=== PATIENT | male | born 1975 | race Caucasian/White ===

== ENCOUNTER 2016-09-20 15:26 | Emergency (ER) | payer SELFPAY ==
[2016-09-20 15:50] VITALS: BP 112/80
--- NOTE | 2016-09-20 16:45 | UC ---
Skin Complaint HPI - HPI Summary HPI Summary: FOUR DAYS AGO STAYED IN A PERSON'S HOUSE ON THE COUGH, BEGAN DEVELOPING WORSENING ITCHY RASH ON TORSO ARMS AND LEGS. N0O TICK BITES NO NEW EXPOSURE TO DETERGENTS, FOODS, OR MEDICATION. - History of Current Complaint Chief Complaint: UCSkin Time Seen by Provider: 09/20/16 15:41 Stated Complaint: RASH Hx Obtained From: Patient Onset/Duration: Gradual Onset, Lasting Days, Still Present, Worse Since - DAILY Skin Exposure Onset/Duration: Days Ago Onset Severity: Moderate Current Severity: Moderate Pain Intensity: 0 Pain Scale Used: 0-10 Numeric Location: Diffuse Character: Pruritus, Redness Aggravating: Nothing Alleviating: Nothing Associated Signs & Symptoms: Positive: Rash. Negative: Nausea, Vomiting, Numbness, Thirst, Shivering, Fever, Chills, Cough, Wheezing, Hoarseness, Throat Tightening, Syncope, Drainage, Bruising, Tenderness, Red Streaks, Joint Swelling Related History: Possible Reaction to: Insect, Possible Reaction to: Environmental Exposure - Allergy/Home Medications Allergies/Adverse Reactions: Allergies Allergy/AdvReac Type Severity Reaction Status Date / Time No Known Allergies Allergy Verified 09/20/16 15:50 Home Medications: Home Medications 5 Meds For Heart* 09/20/16 [History] Review of Systems Constitutional: Negative Skin: Rash Eyes: Negative ENT: Negative Respiratory: Negative Cardiovascular: Negative Gastrointestinal: Negative Genitourinary: Negative Motor: Negative Neurovascular: Negative Musculoskeletal: Arthralgia Neurological: Negative Psychological: Negative All Other Systems Reviewed And Are Negative: Yes PMH/Surg Hx/FS Hx/Imm Hx Previously Healthy: Yes Endocrine History Of: Denies: Diabetes, Thyroid Disease, Hyperthyroidism, Hypothyroidism Cardiovascular History Of: Reports: Cardiac Disorders Denies: Hypertension Respiratory History Of: Denies: COPD, Asthma, Bronchitis GI/ History Of: Denies: Ulcer - Surgical History Surgical History: None - Family History Known Family History: Positive: Cardiac Disease, Other - noncontibutory - Social History Alcohol Use: None Substance Use Type: Heroin Substance Use Comment - Amount & Last Used: Injects Heroin Smoking Status (MU): Current Every Day Smoker Type: Cigarettes Amount Used/How Often: 1/2 PPD Length of Time of Smoking/Using Tobacco: 19+ years Have You Smoked in the Last Year: Yes Household Exposure Type: Cigarettes Cessation Counseling: Patient Advised to Stop - Immunization History Most Recent Influenza Vaccination: never Most Recent Tetanus Shot: 2013 Most Recent Pneumonia Vaccination: never Physical Exam Triage Information Reviewed: Yes Appearance: Well-Appearing, No Pain Distress, Well-Nourished Vital Signs: Initial Vital Signs Temp 97.7 F 09/20/16 15:46 Pulse 74 09/20/16 15:46 Resp 16 09/20/16 15:46 BP 112/80 09/20/16 15:46 Pulse Ox 95 09/20/16 15:46 Vital Signs Reviewed: Yes Eye Exam: Normal Eyes: Positive: Conjunctiva Clear ENT Exam: Normal ENT: Positive: Normal ENT inspection, Hearing grossly normal Dental Exam: Normal Neck exam: Normal Neck: Positive: Supple, Nontender, No Lymphadenopathy Respiratory Exam: Normal Respiratory: Positive: Chest non-tender, Lungs clear, Normal breath sounds, No respiratory distress, No accessory muscle use Cardiovascular Exam: Normal Cardiovascular: Positive: RRR, No Murmur, Pulses Normal, Brisk Capillary Refill Abdominal Exam: Normal Abdomen Description: Positive: Nontender, No Organomegaly Musculoskeletal Exam: Normal Musculoskeletal: Positive: Strength Intact, ROM Intact Neurological Exam: Normal Psychological Exam: Normal Psychological: Positive: Normal Response To Family Skin: Positive: rashes Course/Dx - Differential Diagnoses - Skin Complaint Differential Diagnoses: Allergic Reaction, Angioedema, Cellulitis, Contact Dermatitis, Drug Rash, Eczema, Impetigo, Local Allergic Reaction, MRSA, Scabies , Tinea - Diagnoses Provider Diagnoses: SCABIES Discharge - Discharge Plan Condition: Stable Disposition: HOME Prescriptions: Cyproheptadine TAB* [Periactin TAB*] 4 mg PO TID PRN #21 tab PRN Reason: Itching Permethrin 5% CREAM* 1 applic TOPICAL SEE INSTRUCTIONS #1 tube Patient Education Materials: Scabies (ED) Referrals: Jitendra Ortiz MD [Primary Care Provider] -
== END 2016-09-20 16:29 | disposition home or self-care (01) ==
LOC: UCEAST 15:26
DX: B86 Scabies (principal); F17.210 Nicotine dependence, cigarettes, uncomplicated
CPT/HCPCS: 99212; G0463

== ENCOUNTER 2016-09-21 21:59 | Emergency (ER) | payer SELFPAY ==
[2016-09-21] MEDS ORDERED: Aspirin Low Dose CHEW TAB* 81 MG PO ONE (22:04)
[2016-09-21 22:07] VITALS: BP 98/73
[2016-09-21 22:18] LABS: Hematocrit 53 % (42-52); Hemoglobin 17.3 g/dl (14.0-18.0); Mean Corpuscular HGB Conc 33 g/dl (31-36); Mean Corpuscular Hemoglobin 28 pg (27-31); Mean Corpuscular Volume 86 fL (80-94); Mean Platelet Volume 8 um3 (7.4-10.4); Red Blood Count 6.14 10^6/ul (4.0-5.4); Red Cell Distribution Width 19 % (10.5-15); White Blood Count 7.5 10^3/ul (3.5-10.8)
[2016-09-21 22:33] LABS: BUN/Creatinine Ratio 18.6 (8-20); Calcium 9.3 mg/dL (8.6-10.3); EGFR African American 69.7 (>60); EGFR Non-African American 54.2 (>60); Globulin 2.6 g/dL (2-4); Magnesium 1.8 mg/dL (1.9-2.7); Total Bilirubin 0.5 mg/dL (0.2-1.0); Total Protein 6.6 g/dL (6.4-8.9)
--- NOTE | 2016-09-21 22:35 | RAD ---
INDICATION: Chest pain COMPARISON: August 21, 2016 TECHNIQUE: PA and lateral dual-energy views were obtained. FINDINGS: Bones/Soft Tissues: There are no acute bony findings. Cardiomediastinal: The cardiomediastinal silhouette is normal. Lungs: There are no infiltrates. Pleura: There are no pleural effusions. Other: None IMPRESSION: NO ACTIVE DISEASE.
[2016-09-21 22:37] LABS: Troponin I 0.05 ng/mL (<0.04)
[2016-09-21 22:46] LABS: Potassium 4.4 mmol/L (3.5-5.0)
--- NOTE | 2016-09-21 22:54 | ED ---
Simon Brian Matthew, scribed for Alvino Benites MD on 09/21/16 at 2215 . HPI Chest Pain - HPI Summary HPI Summary: A 41 y/o male presents to the ED with lower mid chest pain since an hour ago. The pain is rated 7/10 in severity and described as squeezing. The patient was making soup prior to the pain. he has similar symptoms a week ago; however today 's pain is more severe. He was seen at [facility] approximately 3 weeks ago and was hospitalized for 4 days for a bladder infection. Associated symptoms include SOB and left arm numbness. He has aspirin POEM WRITER by EMS. His pain is unaffected by deep breaths. Hx of CHF. The patient is an IV heroin user, but has not used in a couple of days. - History of Current Complaint Chief Complaint: EDChestPainROMI Time Seen by Provider: 09/21/16 22:00 Hx Obtained From: Patient Onset/Duration: Started Hours Ago, Atraumatic, Still Present Time of Onset: 21:00 Timing: Constant Initial Severity: Moderate Current Severity: Moderate Pain Intensity: 7 Pain Scale Used: 0-10 Numeric Chest Pain Location: Mid Sternal - lower mid sternal Chest Pain Radiates: No Character: Pressure/Squeezing Associated Signs and Symptoms: Positive: Chest Pain, Numbness - Left Arm, Shortness of Breath - Allergy/Home Medications Allergies/Adverse Reactions: Allergies Allergy/AdvReac Type Severity Reaction Status Date / Time No Known Allergies Allergy Verified 09/20/16 15:50 PMH/Surg Hx/FS Hx/Imm Hx Endocrine/Hematology History: Denies: Hx Diabetes, Hx Thyroid Disease Cardiovascular History: Denies: Hx Hypertension Respiratory History: Denies: Hx Asthma, Hx Chronic Obstructive Pulmonary Disease (COPD) GI History: Reports: Hx Gastroesophageal Reflux Disease Denies: Hx Ulcer Musculoskeletal History: Reports: Hx Back Problems Denies: Hx Arthritis, Hx Osteoporosis Neurological History: Denies: Hx Headaches Psychiatric History: Reports: Hx Substance Abuse - heroin Infectious Disease History: No Infectious Disease History: Denies: Hx Clostridium Difficile, Hx Hepatitis, Hx Human Immunodeficiency Virus (HIV), Hx of Known/Suspected MRSA, Hx Shingles, Hx Tuberculosis, Hx Known/ Suspected VRE, 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, LEFT arm pit; [place], History Other Infectious Disease, Traveled Outside the [place] in Last 30 Days - Family History Known Family History: Positive: Cardiac Disease, Other - noncontibutory - Social History Alcohol Use: None Substance Use Type: Reports: Heroin Substance Use Comment - Amount & Last Used: Injects Heroin Smoking Status (MU): Current Every Day Smoker Type: Cigarettes Amount Used/How Often: 1/2 PPD Length of Time of Smoking/Using Tobacco: 19+ years Have You Smoked in the Last Year: Yes Review of Systems Constitutional: Negative Eyes: Negative ENT: Negative Positive: Chest Pain Positive: Shortness Of Breath Gastrointestinal: Negative Genitourinary: Negative Musculoskeletal: Negative Skin: Negative Positive: Numbness - Left Arm Psychological: Normal All Other Systems Reviewed And Are Negative: Yes Physical Exam Triage Information Reviewed: Yes Vital Signs On Initial Exam: Initial Vitals Temp Pulse Resp BP Pulse Ox 97.5 F 90 16 98/73 93 09/21/16 22:01 09/21/16 22:01 09/21/16 22:01 09/21/16 22:01 09/21/16 22:01 Vital Signs Reviewed: Yes Appearance: Positive: Well-Appearing, Pain Distress - MILD DISCOMFORT Skin: Positive: Warm Head/Face: Positive: Normal Head/Face Inspection Eyes: Positive: LIVIA ENT: Positive: Hearing grossly normal Neck: Positive: Supple Respiratory/Lung Sounds: Positive: Clear to Auscultation, Breath Sounds Present Cardiovascular: Positive: RRR Abdomen Description: Positive: Nontender, Soft Bowel Sounds: Positive: Present Musculoskeletal: Positive: Strength/ROM Intact Neurological: Positive: Sensory/Motor Intact Psychiatric: Positive: Anxious Diagnostics - Vital Signs Vital Signs Temp Pulse Resp BP Pulse Ox 09/21/16 22:01 97.5 F 90 16 98/73 93 - Laboratory Lab Results: Lab Results 09/21/16 09/21/16 09/21/16 Range/Units 22:10 22:10 22:10 WBC 7.5 (3.5-10.8) 10^3/ul RBC 6.14 H (4.0-5.4) 10^6/ul Hgb 17.3 (14.0-18.0) g/dl Hct 53 H (42-52) % MCV 86 (80-94) fL MCH 28 (27-31) pg MCHC 33 (31-36) g/dl RDW 19 H (10.5-15) % Plt Count 143 L (150-450) 10^3/ul MPV 8 (7.4-10.4) um3 Neut % (Auto) 62.0 (38-83) % Lymph % (Auto) 24.5 L (25-47) % Grady % (Auto) 7.8 (1-9) % Eos % (Auto) 2.2 (0-6) % Baso % (Auto) 3.5 H (0-2) % Absolute Neuts (auto) 4.7 (1.5-7.7) 10^3/ul Absolute Lymphs (auto) 1.8 (1.0-4.8) 10^3/ul Absolute Monos (auto) 0.6 (0-0.8) 10^3/ul Absolute Eos (auto) 0.2 (0-0.6) 10^3/ul Absolute Basos (auto) 0.3 H (0-0.2) 10^3/ul Absolute Nucleated RBC 0.01 10^3/ul Nucleated RBC % 0.1 INR (Anticoag Therapy) 0.94 (0.89-1.11) D-Dimer, Quantitative 219 (Less Than 230) ng/mL Sodium 130 L (133-145) mmol/L Potassium 4.4 (3.5-5.0) mmol/L Chloride 100 L (101-111) mmol/L Carbon Dioxide 21 L (22-32) mmol/L Anion Gap 9 (2-11) mmol/L BUN 27 H (6-24) mg/dL Creatinine 1.45 H (0.67-1.17) mg/dL Est GFR ( Amer) 69.7 (>60) Est GFR (Non-Af Amer) 54.2 (>60) BUN/Creatinine Ratio 18.6 (8-20) Glucose 112 H (70-100) mg/dL Lactic Acid (0.5-2.0) mmol/L Calcium 9.3 (8.6-10.3) mg/dL Magnesium 1.8 L (1.9-2.7) mg/dL Total Bilirubin 0.50 (0.2-1.0) mg/dL AST 26 (13-39) U/L ALT 25 (7-52) U/L Alkaline Phosphatase 116 H (34-104) U/L Troponin I 0.05 H* (<0.04) ng/mL Total Protein 6.6 (6.4-8.9) g/dL Albumin 4.0 (3.2-5.2) g/dL Globulin 2.6 (2-4) g/dL Albumin/Globulin Ratio 1.5 (1-3) 09/21/16 Range/Units 22:10 WBC (3.5-10.8) 10^3/ul RBC (4.0-5.4) 10^6/ul Hgb (14.0-18.0) g/dl Hct (42-52) % MCV (80-94) fL MCH (27-31) pg MCHC (31-36) g/dl RDW (10.5-15) % Plt Count (150-450) 10^3/ul MPV (7.4-10.4) um3 Neut % (Auto) (38-83) % Lymph % (Auto) (25-47) % Grady % (Auto) (1-9) % Eos % (Auto) (0-6) % Baso % (Auto) (0-2) % Absolute Neuts (auto) (1.5-7.7) 10^3/ul Absolute Lymphs (auto) (1.0-4.8) 10^3/ul Absolute Monos (auto) (0-0.8) 10^3/ul Absolute Eos (auto) (0-0.6) 10^3/ul Absolute Basos (auto) (0-0.2) 10^3/ul Absolute Nucleated RBC 10^3/ul Nucleated RBC % INR (Anticoag Therapy) (0.89-1.11) D-Dimer, Quantitative (Less Than 230) ng/mL Sodium (133-145) mmol/L Potassium (3.5-5.0) mmol/L Chloride (101-111) mmol/L Carbon Dioxide (22-32) mmol/L Anion Gap (2-11) mmol/L BUN (6-24) mg/dL Creatinine (0.67-1.17) mg/dL Est GFR ( Amer) (>60) Est GFR (Non-Af Amer) (>60) BUN/Creatinine Ratio (8-20) Glucose (70-100) mg/dL Lactic Acid 1.7 (0.5-2.0) mmol/L Calcium (8.6-10.3) mg/dL Magnesium (1.9-2.7) mg/dL Total Bilirubin (0.2-1.0) mg/dL AST (13-39) U/L ALT (7-52) U/L Alkaline Phosphatase (34-104) U/L Troponin I (<0.04) ng/mL Total Protein (6.4-8.9) g/dL Albumin (3.2-5.2) g/dL Globulin (2-4) g/dL Albumin/Globulin Ratio (1-3) Result Diagrams: 09/21/16 22:10 09/21/16 22:10 Lab Statement: Any lab studies that have been ordered have been reviewed, and results considered in the medical decision making process. - Radiology CXR Xray Interpretation: No Acute Changes - IMPRESSION: NO ACTIVE DISEASE Radiology Interpretation Completed By: Radiologist - EKG 22:18 Cardiac Rate: NL - 84 bpm EKG Rhythm: Sinus Rhythm ST Segment: Non-Specific - DIFFUSE ST DEPRESSION WITH T INVERSIONS Re-Evaluation - Re-Evaluation First Eval Comment: Pt was found in room gettingg dressed trying to take out iv, pt states is leaving and wants to go. Explained to pt that he has a markedly abnormal ekg , may be having a heart attack, pt still states is going to leave, explained risks including mi, loss of life, pt verbalizes understanding but still is going home, refused to sign ama Chest Pain Course/Dx - Diagnoses Provider Diagnoses: ACS (acute coronary syndrome) Discharge - Discharge Plan Condition: Fair Disposition: AGAINST MEDICAL ADVICE Discharge Disposition Comment: The patient eloped from the ED. Referrals: Jitendra Ortiz MD [Primary Care Provider] - The documentation as recorded by the Simon suarez Matthew accurately reflects the service I personally performed and the decisions made by me, Alvino Benites MD.
[2016-09-29] MEDS ORDERED: EPINEPHrine SYR 0.1 MG/ML* (1:10,000) SYRINGE ONE (23:34)
== END 2016-09-21 22:51 | disposition left against medical advice (07) ==
LOC: ED 21:59
DX: I24.9 Acute ischemic heart disease, unspecified (principal); R07.9 Chest pain, unspecified; R06.02 Shortness of breath; R20.0 Anesthesia of skin; F17.210 Nicotine dependence, cigarettes, uncomplicated
CPT/HCPCS: 36415; 71020; 80053; 83605; 83735; 84484; 85025; 85379; 85610; 93005; 99282

== ENCOUNTER 2016-09-29 23:27 | Emergency (ER) | payer OTHER ==
[2016-09-29] MEDS ORDERED: Rocuronium* 10 MG/ML VIAL ONE (23:34)
[2016-09-29] MEDS ORDERED: EPINEPHrine SYR 0.1 MG/ML* (1:10,000) SYRINGE ONE (23:46)
[2016-09-29] MEDS ORDERED: Naloxone* 0.4 MG/ML 10 ML VIAL ONE (23:58)
[2016-09-29] MEDS ORDERED: KETAMINE HCL* 50 MG/ML 10 ML VIAL ONE (23:59)
[2016-09-30 00:48] VITALS: BP 0/0
--- NOTE | 2016-09-30 00:54 | ED ---
I, Oh,Soohgloria, scribed for Chandrakant Reynolds MD on 09/30/16 at 0009 . Cardiac Resuscitation - HPI Summary HPI Summary: This 39 y/o male presents to ED via private transport alongside a couple of friends. Friends reports that he was over at their house to do laundry and have dinner when pt was noted with decreased responsiveness. Pt is noted with decreased responsiveness when initially encountered at unit receptionist, and was immediately placed in ED room where Narcan was administered. Responsiveness is improved after Narcan, and pt fights the restraint while E IO is being placed. Bradypnea continued and pt was noted asystole during the initial attempt to establish IO. Pt is noted with sinus tachycardia, then sinus bradycardia, then noted asystole at 2332 PM. ABC code called. Per EMR, PMHx includes endocarditis and IVDA. Pt was last evaluated in ED with chief complaint of CP on 09/21/2016. Pt was then noted with markedly abnormal EKG and stroke-like symptoms. Pt was to have further work up, but refused and walked out AMA. - History of Current Complaint Stated Complaint: UNRESPONSIVE Hx Obtained From: Family/Information And Referral Director - friends Hx From Patient Unobtainable Due To: Extremis Arrest Witnessed: Yes Down-time Before Basic Life Support Initiated: Down-time before BLS initiated: - 0 Down-time Before Advanced Life Support Initiated: Down-time before ALS initiated : - 0 Was AED Placed on Patient: No - Prehospital Findings Breathing: Bradypnea Circulation/Rhythm: Sinus Bradycardia Disability/Neurologic: Unresponsive - Prehospital Response Airway: Patent - Past Medical History Past Medical History: Unobtainable Due to Extremis - Family History Family History: Unobtainable Due to Extremis - Social History Social History: Unobtainable Due to Extremis - Review of Systems Review of Systems: Unobtainable Due to Extremis Physical Examination - Physical Examination Completion Of Physical Exam Limited Due To: Extremis Resuscitation Termination Time: 23:55 Resuscitation: Unsuccessful - ED Findings Airway: Gag Reflex Absent Breathing: Apnea Circulation/Rhythm: Asystole Disability/Neurological: Unresponsive - ED Intervention Breathing: Intubation: - IO in place Circulation/Rhythm: Chest Compressions, Epinephrine: - x5 and bicarb x1 Procedures - Procedure Summary Procedure Summary: Limited Transthoracic Echocardiography: Asystole with LV thrombus obscuring visualization of the mitral valve. Tricuspid valve partially visualized. No pericardial effusion. Chandrakant Reynolds MD, RDMS RDCS Rapid Sequence Induction and Direct Larygnoscopy with single attempt with Mac 4 blade and bougie assistance. Successful air return, mist in the tube, and color capnometer. Chandrakant Reynolds MD, RDMS RDCS - Central Line Central Line Lumen: triple Central Line Position: subclavian (L) Complications: none Central Line Post Position: good blood return - Additional Procedures Additional Procedures: CPR Diagnostics - Vital Signs Vital Signs Temp Pulse Resp BP Pulse Ox 09/30/16 00:39 92 F 0 0 0/0 0 09/29/16 23:50 96.9 F 0 0 0 - Laboratory Lab Statement: Any lab studies that have been ordered have been reviewed, and results considered in the medical decision making process. Cardiac Resus. Course/Dx - Cardiac Resuscitation Differential Dx/HPI/PQRI: Acute Myocardial Infarct, Asystole, Cardiac Rhythm Disturbance, Drug Overdose - Diagnoses Provider Diagnoses: Cardiopulmonary arrest During the Visit The Following Alert/Code Occurred: ABC Alert - at 2332 PM - Critical Care Time Critical Care Time: 30-74 min - 30 minutes discussing case with girlfriend, friends, mother, performing CPR, Limited TTE, central line placement. Discharge - Discharge Plan Condition: Disposition: The documentation as recorded by the nancyibTravon gunn Soohyun accurately reflects the service I personally performed and the decisions made by Gail patino Scott, MD.
== END 2016-09-29 23:55 | disposition expired ==
LOC: ED 23:27 → MERGE 23:27 → ED 23:55
DX: I46.9 Cardiac arrest, cause unspecified (principal)
CPT/HCPCS: 92950; 92960; 99285; J0171; J2310